=== PATIENT | female | born 1940 | race Caucasian/White ===

== ENCOUNTER 2017-09-29 13:04 | Inpatient (IN) | payer MEDICARE, OTHER ==
[~2017-09-29] VITALS: Ht 160 cm; Wt 79.9 kg
[~2017-09-29 13:04] MED LIST: ACIDOPHILUS1 CAP PO; ALLERGY4 MG PO; AMBIEN5 MG PO; ANUSOL-HC25 MG R; ARIXTRA2.5 MG/0.5 SC; ASPIRIN CHILDRE81 MG PO; ATIVAN1 MG PO; BENEFIBER1 CTB PO; CILOSTAZOL100 MG PO; CLARITIN10 MG PO; CULTURELLE10 Billion PO; DAYQUIL COLD/FL1 SG1 PO; DUONEB 3 MG/3 ML3 M1 INH; FUROSEMIDE80 MG PO; GAS-X80 MG PO; HYDROCODONE BIT1 T11 PO; IMODIUM A-D2 MG PO; LASIX40 MG PO; LEVAQUIN750 MG PO; LIPITOR20 MG PO; LIPITOR40 MG PO; LOPRESSOR25 MG PO; MAG-OX 400400 MG PO; MUCINEX PO; MUCINEX600 MG PO; MUSINEX; NASONEX0.05 MG/AC; NASONEX0.05 MG/AC NAS; OXYGEN; PERCOCET 325 MG1 TA2 PO; PRAVACHOL40 MG PO; PREDNISONE10 MG PO; PRILOSEC20 M1 PO; PRILOSEC20 MG PO; PROAIR HFA0.09 MG/AC IH; PROAIR HFA0.09 MG/AC INH; PROCHLORPERAZIN10 MG PO; Percocet 325 MG1 TAB PO; QUESTRAN LIGHT4 GM PO; SYMBICORT1 AE1 IH; SYMBICORT1 AE1 INH; THERAPEUTIC VIT1 CAP PO; TOPROL XL25 MG PO; TYLENOL SINUS C PO; VITAMIN D5000 I2 PO; Ventolin 02.5 MG/3 M INH; [UNRECOGNIZED DRUG - OTHER]; [UNRECOGNIZED DRUG - OTHER] PO
[2017-09-29 13:08] VITALS: BP 157/49
[2017-09-29 14:14] LABS: BILIRUBIN NEGATIVE (NEGATIVE); BLOOD NEGATIVE (NEGATIVE); CLARITY SL CLOUDY (CLEAR); COLOR YELLOW (YELLOW); GLUCOSE NEGATIVE (NEGATIVE); KETONE NEGATIVE (NEGATIVE); LEUKO ESTERASE 2+ (NEGATIVE); NITRITE NEGATIVE (NEGATIVE); PH 5.5 (5.0-9.0); UROBILINOGEN 0.2 E.U./dl (0.2-1.0)
[2017-09-29 14:23] LABS: BASO # 0.1 10*3/uL (0.0-0.1); BASO % 0.8 % (0.0-1.0); EOS # 0.1 10*3/uL (0.0-0.4); EOS % 2.1 % (1.0-4.0); HEMATOCRIT 37.4 % (37.0-47.0); LYMPH # 1.3 10*3/uL (1.3-4.4); LYMPH % 18.8 % (27.0-41.0); MEAN CELL VOLUME 95.2 fl (81.0-99.0); MEAN CORPUSCULAR HGB 30.5 pg (27.0-31.0); MEAN CORPUSCULAR HGB CONC 32.1 g/dl (33.0-37.0); MEAN PLATELET VOLUME 9.6 fl (9.6-12.3); MONO # 0.7 10*3/uL (0.1-1.0); MONO % 10.4 % (3.0-9.0); NEUT # 4.5 10*3/uL (2.3-7.9); NEUT % 67.6 % (47.0-73.0); PLATELET COUNT AUTOMATED 245 10*3/uL (130-400); RED BLOOD COUNT 3.93 10*6/uL (4.10-5.10); RED CELL DISTRI WIDTH 12.3 % (0-14.5); WHITE BLOOD COUNT 6.6 10*3/uL (4.8-10.8)
[2017-09-29 14:33] LABS: ACT PARTIAL THROMBO TIME 24.4 SECONDS (20.8-31.5)
[2017-09-29 14:35] LABS: BACTERIA 2+; EPITHELIAL CELLS 51-100
[2017-09-29 14:36] LABS: WBC 21-30 wbc/hpf (0-5)
[2017-09-29 14:39] LABS: ALBUMIN 3.2 gm/dl (3.1-4.5); ALKALINE PHOSPHATASE 45 U/L (45-117); BUN 10 mg/dl (7-24); CHLORIDE 109 mmol/L (98-107); CREATININE 0.75 mg/dL (0.55-1.02); LIPASE 49 U/L (73-393); SGOT/AST 16 IU/L (3-35); SGPT/ALT 17 U/L (12-78); SODIUM 142 mmol/L (136-145); TOTAL PROTEIN 6.4 gm/dL (6.4-8.2); TROPONIN I < 0.015 ng/ml (<0.045)
[2017-09-29 15:20] VITALS: BP 150/60
[2017-09-29 16:00] VITALS: BP 141/56
[2017-09-29 20:00] VITALS: BP 128/60
[2017-09-30] VITALS: BP 132/107
[2017-09-30 06:33] LABS: BASO % 0.8 % (0.0-1.0); EOS # 0.1 10*3/uL (0.0-0.4); EOS % 2.5 % (1.0-4.0); HEMATOCRIT 38.4 % (37.0-47.0); HEMOGLOBIN 12.3 g/dl (12.0-16.0); LYMPH # 1.4 10*3/uL (1.3-4.4); LYMPH % 26.9 % (27.0-41.0); MEAN CORPUSCULAR HGB 30.4 pg (27.0-31.0); MEAN PLATELET VOLUME 9.7 fl (9.6-12.3); MONO # 0.5 10*3/uL (0.1-1.0); MONO % 10.2 % (3.0-9.0); NEUT # 3.1 10*3/uL (2.3-7.9); NEUT % 59.2 % (47.0-73.0); PLATELET COUNT AUTOMATED 245 10*3/uL (130-400); RED BLOOD COUNT 4.04 10*6/uL (4.10-5.10); RED CELL DISTRI WIDTH 12.4 % (0-14.5); WHITE BLOOD COUNT 5.2 10*3/uL (4.8-10.8)
[2017-09-30 06:41] LABS: ACT PARTIAL THROMBO TIME 25.1 SECONDS (20.8-31.5); INTERNATIONAL NORM RATIO 1.1 (2.0-3.5)
[2017-09-30 06:57] LABS: ALBUMIN 3.2 gm/dl (3.1-4.5); ALKALINE PHOSPHATASE 44 U/L (45-117); BUN 7 mg/dl (7-24); CHLORIDE 108 mmol/L (98-107); CHOLESTEROL 150 mg/dL (<200); CREATININE 0.65 mg/dL (0.55-1.02); FREE T4 1.03 ng/dl (0.76-1.46); HDL CHOLESTEROL 62 mg/dl (40-60); LDL CHOLESTEROL 71 mg/dL (9-159); PHOSPHOROUS 2.9 mg/dL (2.5-4.9); POTASSIUM 3.8 mmol/L (3.5-5.1); SGOT/AST 16 IU/L (3-35); SGPT/ALT 18 U/L (12-78); SODIUM 143 mmol/L (136-145); TOTAL PROTEIN 6.4 gm/dL (6.4-8.2); TRIGLYCERIDES 84 mg/dl (<150); VLDL CHOLESTEROL 17 mg/dL (6-40)
[2017-09-30 07:33] LABS: VITAMIN D, 25-HYDROXY 15.1 ng/mL (30-100)
[2017-09-30 08:00] VITALS: BP 140/55
[2017-09-30 12:00] VITALS: BP 153/68
[2017-09-30] MEDS ORDERED: VITAMIN D-32000 UNIT PO (13:39)
[2017-09-30] MEDS ORDERED: NORVASC5 MG PO (13:40)
== END 2017-09-30 14:40 | disposition home or self-care (01) | DRG 312 ==
LOC: ED 13:04 → 4E 16:00 → EDHOLD 16:00 → 4E 16:22
PROVIDERS: Emergency Medicine; Family Medicine
DX: R55 Syncope and collapse (principal); E87.2 Acidosis; E44.0 Moderate protein-calorie malnutrition; E86.0 Dehydration; N39.0 Urinary tract infection, site not specified; J44.9 Chronic obstructive pulmonary disease, unspecified; I10 Essential (primary) hypertension; E78.5 Hyperlipidemia, unspecified; Z80.49 Family history of malignant neoplasm of other genital organs; Z88.8 Allergy status to other drugs, medicaments and biological substances; Z88.1 Allergy status to other antibiotic agents; Z91.013 Allergy to seafood; Z79.899 Other long term (current) drug therapy; Z85.048 Personal history of other malignant neoplasm of rectum, rectosigmoid junction, and anus; Z90.49 Acquired absence of other specified parts of digestive tract; Z93.3 Colostomy status; Z87.891 Personal history of nicotine dependence; Z80.8 Family history of malignant neoplasm of other organs or systems; Z68.31 Body mass index [BMI] 31.0-31.9, adult

== ENCOUNTER 2018-01-02 12:32 | Emergency (ER) | payer MEDICARE, OTHER ==
[~2018-01-02] VITALS: Ht 157.4 cm; Wt 79.4 kg
[~2018-01-02 12:32] MED LIST changes: +NORVASC5 MG PO; +VITAMIN D-32000 UNIT PO
== END 2018-01-02 15:40 | disposition home or self-care (01) ==
LOC: ED 12:32
DX: S82.831A Other fracture of upper and lower end of right fibula, initial encounter for closed fracture (principal); Z88.1 Allergy status to other antibiotic agents; Z91.013 Allergy to seafood; Z88.8 Allergy status to other drugs, medicaments and biological substances; Z79.899 Other long term (current) drug therapy; Z90.49 Acquired absence of other specified parts of digestive tract; Z87.891 Personal history of nicotine dependence; X50.1XXA Overexertion from prolonged static or awkward postures, initial encounter; Y93.89 Activity, other specified; Y92.89 Other specified places as the place of occurrence of the external cause; Y99.8 Other external cause status

== ENCOUNTER → 2018-02-02 | Outpatient (CLI) | payer MEDICARE, OTHER | END | disposition home or self-care (01) | LOC: WOUNDCARE 07:43 | DX: I87.312 Chronic venous hypertension (idiopathic) with ulcer of left lower extremity (principal); L97.821 Non-pressure chronic ulcer of other part of left lower leg limited to breakdown of skin; I73.9 Peripheral vascular disease, unspecified; J44.9 Chronic obstructive pulmonary disease, unspecified; E78.5 Hyperlipidemia, unspecified; I10 Essential (primary) hypertension; Z85.048 Personal history of other malignant neoplasm of rectum, rectosigmoid junction, and anus; Z90.49 Acquired absence of other specified parts of digestive tract; Z87.891 Personal history of nicotine dependence ==

== ENCOUNTER 2018-03-31 12:40 | Emergency (ER) | payer MEDICARE, OTHER ==
[~2018-03-31] VITALS: Ht 157.4 cm; Wt 68.0 kg
== END 2018-03-31 16:17 | disposition home or self-care (01) ==
LOC: ED 12:40
DX: S82.435A Nondisplaced oblique fracture of shaft of left fibula, initial encounter for closed fracture (principal); I11.0 Hypertensive heart disease with heart failure; I50.9 Heart failure, unspecified; J44.9 Chronic obstructive pulmonary disease, unspecified; Z88.1 Allergy status to other antibiotic agents; Z91.013 Allergy to seafood; Z91.041 Radiographic dye allergy status; Z88.8 Allergy status to other drugs, medicaments and biological substances; Z79.899 Other long term (current) drug therapy; Z90.49 Acquired absence of other specified parts of digestive tract; Z93.3 Colostomy status; Z87.891 Personal history of nicotine dependence; W19.XXXA Unspecified fall, initial encounter; Y93.89 Activity, other specified; Y92.89 Other specified places as the place of occurrence of the external cause; Y99.8 Other external cause status

== ENCOUNTER → 2018-04-06 | Outpatient (CLI) | payer MEDICARE, OTHER | END | disposition home or self-care (01) | LOC: US 11:22 | DX: M79.604 Pain in right leg (principal); M79.605 Pain in left leg; R60.0 Localized edema ==

== ENCOUNTER 2018-05-14 19:30 | Inpatient (IN) | payer MEDICARE, OTHER ==
[~2018-05-14] VITALS: Ht 160 cm; Wt 70.8 kg
[2018-05-14 19:35] VITALS: BP 142/80
--- NOTE | 2018-05-14 20:33 | NUR ---
PATIENT REFUSING IV INSERTION. DR PAPPAS AWARE.
--- NOTE | 2018-05-14 20:49 | NUR ---
PATIENT DROWSY IN EXAM ROOM. REPORTS HER PAIN IS "OKAY". STATES "THAT SHOT DID IT". DR PAPPAS AWARE.
[2018-05-14 21:09] VITALS: BP 137/61
--- NOTE | 2018-05-14 21:09 | NUR ---
Time: 2108 A 77 year old FEMALE admitted to under services of CHRISTINA DE LA CRUZ DO. Pt. arrived via bed from ER. Chief complaint: CLOSED HUMERUS FRACTURE, INTRACTABLE PAIN. PT BELONGINGS ACCOUNTED FOR. HEALTHY LIFESTYLES GUIDELINE REVIEWED. DR. SQUIRES IS AWARE THAT PT IS REFUSING IV ACCESS. PT IS PLEASANT AND COOPERATIVE AND ANSWERED ALL QUESTIONS APPROPRIATELY. ASSESSMENT COMPLETED. WILLIAM DAWSON
--- NOTE | 2018-05-14 21:09 | NUR ---
DR. SQUIRES IS AWARE PT IS REFUSING IV ACCESS AT THIS TIME.
--- NOTE | 2018-05-14 21:50 | NUR ---
PT STATES THAT THE CURRENT MEDICATIONS ON THE MED REC FROM HER LAST VISIT HAVE CHANGED AND THAT SHE TAKES MORE THAN WHAT IS LISTED AT THIS TIME. PT STATES SHE WILL MAKE A CALL TO HER BROTHER IN THE MORNING WHO HAS A LIST OF HER MEDICATIONS, SHE STATES SHE DOES NOT WANT TO CALL AT THIS TIME AND WAKE HIM UP. DR. SQUIRES NOTIFIED. WILL PASS ON TO ONCOMING RN IF SHE DOES NOT SPEAK WITH HER BROTHER DURING THE CURRENT SHIFT.
[2018-05-15] VITALS: BP 138/56
--- NOTE | 2018-05-15 00:17 | NUR ---
PRN ORDER FOR TYLENOL REQUESTED AND RECIEVED FOR PAIN TO FRACTURED LEFT SHOULDER. SHE RATES THE PAIN AN 8/10 HOWEVER SHE REFUSES ANYTHING STRONGER THAN TYLENOL, SHE STATES SHE "REFUSES TO TAKE DRUGS FOR PAIN CONTROL". WILL CONTINUE TO MONITOR FOR EFFECTIVENESS.
--- NOTE | 2018-05-15 03:15 | NUR ---
SPOKE TO DR. SQUIRES REGUARDING AN ORDER FOR A SLING TO HELP IMMOBILIZE THE PT'S ARM. SHE STATES IT HURTS MORE BECAUSE SHE CANNOT KEEP IT STILL. WILL CONTINUE TO MONITOR
--- NOTE | 2018-05-15 04:29 | NUR ---
PT IS RESTING IN BED AT THIS TIME WITH NO SIGNS OF DISTRESS. SPLINT TO LEFT ARM IS INTACT. RESPIRATIONS ARE EASY AND UNLABORED. PT IS STILL REFUSING AN IV SITE. BED IS IN LOWEST POSITION AND CALL LIGHT IS WITHIN REACH. BED ALARM IS ON AND YELLOW FALLING STAR SIGN IS POSTED. WILL CONTINUE TO MONITOR PT.
[2018-05-15 08:00] VITALS: BP 120/92
--- NOTE | 2018-05-15 08:33 | NUR ---
ASSESSMENT DONE AND DOCUMENTED. PT RESTING IN BED. PT REMAINS NPO. YULISA THOMAS SPCC
--- NOTE | 2018-05-15 09:00 | NUR ---
Air Pollution Analyst in to talk to patient. Patient states lives at home with alone. There are no steps in the home. Physician: mary tobar [facility] [place] [facility]: [facility] Patient's level of ADLs: MODERATE ASSIST Patient has working utilities: all working DME: home oxygen, portable tanks Follow-up physician's appointment after d/c: will be made by hospitalist nurse director upon dischage Does patient want to access PORTAL?: no Discharge plan discussed with patient, patient lives at home alone, patient has not been getting around very well, she has a cast to lower extremity and now has a fractured humerus, discussed with patient going to a short term [facility] for rehab prior to going home, patient declined, stated she would be able to care for herself at home, again educated patient that she would receive 24 hour care and therapy 5 days a week in a short term skilled in order for her to be able to return home safely. patient continued to decline SNF, case management will talk with patient again regarding this. JOSE D JOHNSTON
--- NOTE | 2018-05-15 09:15 | NUR ---
TALKED TO THE PODIATRY RESIDENT, SAID HE WOULD BE IN TO SEE THE PT THIS AFTERNOON.
[2018-05-15 09:22] LABS: BASO % 0.7 % (0.0-1.0); EOS # 0.2 10*3/uL (0.0-0.4); HEMATOCRIT 39.4 % (37.0-47.0); HEMOGLOBIN 12.2 g/dl (12.0-16.0); LYMPH # 1.2 10*3/uL (1.3-4.4); LYMPH % 21.5 % (27.0-41.0); MEAN CELL VOLUME 91.6 fl (81.0-99.0); MEAN CORPUSCULAR HGB 28.4 pg (27.0-31.0); MEAN PLATELET VOLUME 9.5 fl (9.6-12.3); MONO # 0.5 10*3/uL (0.1-1.0); MONO % 9.2 % (3.0-9.0); NEUT # 3.6 10*3/uL (2.3-7.9); NEUT % 64.4 % (47.0-73.0); PLATELET COUNT AUTOMATED 272 10*3/uL (130-400); RED CELL DISTRI WIDTH 13.2 % (0-14.5); WHITE BLOOD COUNT 5.5 10*3/uL (4.8-10.8)
[2018-05-15 09:38] LABS: ALBUMIN 2.8 gm/dl (3.1-4.5); ALKALINE PHOSPHATASE 55 U/L (45-117); BUN 10 mg/dl (7-24); CHLORIDE 106 mmol/L (98-107); CHOLESTEROL 150 mg/dL (<200); HDL CHOLESTEROL 63 mg/dl (40-60); LDL CHOLESTEROL 71 mg/dL (9-159); PHOSPHOROUS 3.1 mg/dL (2.5-4.9); POTASSIUM 4.2 mmol/L (3.5-5.1); SGOT/AST 14 IU/L (3-35); SGPT/ALT 13 U/L (12-78); SODIUM 138 mmol/L (136-145); TOTAL PROTEIN 6.3 gm/dL (6.4-8.2); TRIGLYCERIDES 78 mg/dl (<150); VLDL CHOLESTEROL 16 mg/dL (6-40)
[2018-05-15 09:39] LABS: FREE T4 0.99 ng/dl (0.76-1.46)
[2018-05-15 09:44] LABS: THYROID STIM HORMONE (HS) 0.962 uIU/ml (0.358-4.75)
--- NOTE | 2018-05-15 11:18 | NUR ---
Occupational Therapy evaluation completed on 4 with full eval to follow. Precautions include NWB LLE with cast in place, NWB LUE with sling and LUE immobilized from wrist to shd until orthopedic consult, non compliance with LLE NWB. Staff and patient educated in LLE and LUE precautions, pain in LUE. Patient is high complexity level [id number] via chart review, testing and evaluation. REcommend SNF to enable safe return home alone. Patient is refusing SNF at this time. Thank you for this referral. Sugey Mendoza OTR/L
[2018-05-15 11:36] LABS: VITAMIN D, 25-HYDROXY 19.9 ng/mL (30-100)
--- NOTE | 2018-05-15 11:46 | NUR ---
IN TO SEE PT.
[2018-05-15 12:08] VITALS: BP 128/54
--- NOTE | 2018-05-15 13:32 | NUR ---
PHYSICAL THERAPY PAtient evaluated in 4, full evaluation to follow. Continue with PT as per plan of care with fall, max(A) x 2 and NWB LUE AND LLE precautions. MAy require LTAC prior to SNF, pemding medical needs. PAient is high complexity via chart review, tests and evaluation: [id number]. Please note patient kept repeating she was WBAT LLE. This PT noted her cast appeared to be a NWB cast- not a walking cast so this PT called her clinic and spoke with Kamari at [phone] and per that clinic, as of 05/11/18 she is definately NWB LLE. PAtient and all staff members involved with this patient care at [facility] facility extensively educated patient is NWB LLE. PAtient unable to stand erct NWB LLE with max(A) x 2 this date, especially NWB LUE as well. Thank you for this referral. Berenice Arteaga,PT
--- NOTE | 2018-05-15 13:46 | NUR ---
REPORT GIVEN TO HELEN RODGERS. PT RESTING IN BED. VISITING WITH BROTHER. YULISA THOMAS SPNRCC
--- NOTE | 2018-05-15 15:45 | NUR ---
PT AGREEING TO "TRY" NORCO AT THIS TIME FOR ARM/SHOULDER PAIN RATED 10/10. CALL LIGHT IN REACH. RISKS AND BENEFITS EXPLAINED.
[2018-05-15 16:00] VITALS: BP 121/51
--- NOTE | 2018-05-15 16:04 | NUR ---
OT NOTE PATIENT SEEN 1:1 OT THIS DATE. PATIENT IDENTIFIED BY NAME AND DATE OF THIS DATE. PATIENT IN BED UPON ARRIVAL COMPLETED ACTIVITY TO TOLERANCE THIS DATE. COMPLETED 26 MINUTES OF OT. COMPLETED SUPINE TO SIT EOB USE OF RAIL RUE MOD A AND INCREASE TIME. PATIENT REPORTS PAIN LEFT UE VERBALIZING THAT IT JUST HURTS. PATIENT WITH L SLING WEAR THROUGHOUT SESSION THIS DATE. PATIENT EDUCATED ON LLE NWB STATUS WITH THE PATIENT VERBALIZING POOR UNDERSTANDING. PATIENT COMPLETED SIT BALANCE EOB 20 MINUTES COMPLETING GROOMING TASK USE RUE COMBING HAIR. PATIENT COMPLETED SIT TO SUPINE MOD A TO LIFT BLE INTO BED. PATIENT IN BED END OF SESSION VERBALIZING COMFORT AND NO FURTHER NEEDS. PATIENT'S BED ALARM INTACT END OF SESSION AND CALL LIGHT WITHIN REACH. KEITH BENJAMIN
[2018-05-15 20:00] VITALS: BP 134/80
--- NOTE | 2018-05-15 20:12 | NUR ---
PATIENT IS AAOX3 RESTING IN BED WITH EASY AND REGULAR RESPERS ON ROOM AIR. ASSESSMENT IS COMPLETE, PATIENT DOES DISPLAY SIGNS OF DISCOMFORT AND C/O PAIN TO LEFT SHOULDER RATING A 7/10. PATIENT WOULD LIKE PAIN MEDICATION WITH 2200 MEDS. BED IS LOW, LOCKED, ALARMED, AND CALL LIGHT IS WITHIN REACH. SEE SHIFT ASSESSMENT.
--- NOTE | 2018-05-15 22:04 | NUR ---
PRN NORCO GIVEN AT THIS TIME FOR LEFT SHOULDER PAIN AND TO AID IN SLEEPING. PATIENT TOLERATED WELL, CALL LIGHT IS WITHIN REACH.
[2018-05-16] VITALS: BP 137/73
--- NOTE | 2018-05-16 07:08 | NUR ---
PATIENT RESTING IN BED WITH EYES CLOSED. RESPIRATIONS ARE EASY AND REGULAR. NO DISTRESS IS NOTED. BED IS IN LOWEST POSITION WITH WHEELS LOCKED. BED ALARM INTACT. CALL LIGHT IS WITHIN REACH. WILL CONTINUE TO MONITOR.
[2018-05-16 08:00] VITALS: BP 130/70
--- NOTE | 2018-05-16 08:12 | NUR ---
SPOKE WITH DR SANTANA REGARDING PATIENTS DIET. PER DR SANTANA NO REASON FOR PATIENT TO BE NPO FROM HER STANDPOINT. JAK PERRY NOTIFIED.
--- NOTE | 2018-05-16 08:20 | NUR ---
OT NOTE Pt was seen this A.M. 1:1 for 24 minute OT session. Upon arrival pt was sitting upright on the EOB with non skid sock on her L foot and personal sock on the R and sling on her LUE. Pt identified by name and and had reports of 5/10 pain in her L shoulder. Educated pt on importance and safety with wearing non skid socks, pt donned R sock with modA due to no use with her LUE. Challenged pt's sitting balance needed for increased I and enhanced safety while having her weight shift, cross midline, and complete bilateral integration tasks. Pt was able to maintain G- sitting balance throughout for aprox 10 minutes. Educated pt on non weight bearing status, pt verbalized understanding. Pt completed sit to stand transfers from bed level with modA and poor carry over of weight bearing status, pt would correct with verbal prompts. Pt was able to tolerate aprox 30 seconds at a time of static standing before sitting due to fatigue. Pt completed stand pivot to bedside commode with modA and constant verbal prompts due to pt not following weight bearing status. Pt then returned to EOB where she trasnferred sit to supine with CGA. Pt was left supine in bed with L shoulder on rolled blankets, call light in hand, tray table in place, and bed alarm activated for safety. Continue with rec D/C plan to SNF. MARY Todd/Vahid .
--- NOTE | 2018-05-16 08:51 | NUR ---
PRN NORCO GIVEN FOR COMPLAINTS OF LEFT ARM PAIN RATED 9/10. WILL EVALUATE EFFECTIVENESS. CALL LIGHT IS WITHIN REACH.
--- NOTE | 2018-05-16 08:58 | NUR ---
Patient agreeable to half-way; when provided with a list of facilities, patient chose [facility]. Contacted facility and faxed referral, requires 3 night stay. Waiting on review/acceptance.
--- NOTE | 2018-05-16 10:16 | NUR ---
PRN NORCO APPEARS TO BE EFFECTIVE. PATIENT RESTING IN BED WITH EYES CLOSED. RESPIRATIONS ARE EASY AND REGULAR. NO DISTRESS NOTED. CALL LIGHT IS WITHIN REACH. WILL CONTINUE TO MONITOR.
--- NOTE | 2018-05-16 10:43 | NUR ---
PHYSICAL THERAPY Patient presented to therapy in supine position with report of 5/10 pain in the L Shoulder. Patient has report of NOT maintaining her NWB STATUS at all since she injured her L LE/ANKLE. Patient agrees to therapy session. Patient was identified by name and . Patient IS NWB ON BOTH L LE AND UE. Patient performed supine to sitting transfer at EOB with MOD A X 1 due to not being able to use the L UE. Patient performed bilateral LE THER EX in all planes of movement x 10 reps each for strengthening in order to improve patient's functional mobility. Patient sat at EOB for 5 minutes SBA. Patient transferred STS with MOD X 2. Patient stood for 37 sec. at EOB with CGA X 2 maintaing NWB on L LE. Patient transferred back to sitting at EOB with MIN A X 2. Patient transferred back to supine in bed with CGA X 1. Patient was left in supine position with call light within reach, bed alarm activated, and head of bed elevated. MARY TEJADA witnessed the bed alarm being turned on / activated. Patient was 1:1 with this BANQUET LEAD for 20 minutes total. KATEY ALVARADO BANQUET LEAD
--- NOTE | 2018-05-16 11:40 | NUR ---
Patient has been accepted to [facility], hospital exemption completed, patient requires 3 night stay, she can go on Tuesday05/17/18 if medically stable for discharge.
[2018-05-16 12:00] VITALS: BP 132/98
[2018-05-16 16:00] VITALS: BP 124/55
--- NOTE | 2018-05-16 19:45 | NUR ---
PATIENT IS AAOX3 WITH EASY AND REGULAR RESPERS ON ROOM AIR. ASSESSMENT IS COMPLETE WITH NO S/S OF DISTRESS NOTED AT THIS TIME. PATIENT DOES C/O LEFT SHOULDER/ARM PAIN RATING A 9/10, PATIENT REFUSED TYLENOL AT THIS TIME AND WOULD LIKE NORCO WHEN DUE. BED IS LOW, LOCKED, AND CALL LIGHT IS WITHIN REACH. SEE SHIFT ASSESSMENT.
[2018-05-16 20:00] VITALS: BP 111/57
--- NOTE | 2018-05-16 21:54 | NUR ---
PRN NORCO AND IMMODIUM GIVEN AT THIS TIME FOR PATIENT C/O PAIN AND LOOSE STOOL. CALL LIGHT IS WITHIN REACH WILL MONITOR EFFECT.
--- NOTE | 2018-05-16 22:30 | NUR ---
PRN MEDICATION EFFECTIVE PER PATIENT. CALL LIGHT IS WITHIN REACH.
[2018-05-17] VITALS: BP 109/62
--- NOTE | 2018-05-17 02:00 | NUR ---
PATIENT IS SLEEPING WITH EASY AND REGULAR RESPERS ON ROOM AIR, CALL LIGHT IS WITHIN REACH.
[2018-05-17 08:00] VITALS: BP 127/89
[2018-05-17] MEDS ORDERED: HYDROCODONE-AC1 EAC1 PO (08:47)
--- NOTE | 2018-05-17 10:45 | NUR ---
OT NOTE Pt was seen this A.M. 1:1 for 15 minute OT session. Upon arrival pt was supine in bed, pt identified by bame and . Pt had reports of pain in her L shoulder however was unable to rate on 0-10 pain scale. Pt transferred supine to sit EOB with modA for assist with UB. Re educated pt on non weight bearing status and pt became very aggitated. Pt completed multiple sit to stand transfers from bed level with modA with constant verbal prompts for LLE weight bearing and pt was non compliant placing WBAT on LLE. Challenged pt's static standing tolerance while being non weight bearing due to therapists constant verbal prompts needed for increased I in self care tasks and functinal transfers. Pt was able to tolerate aprox 30-45 seconds at a time with modA for UE support. Stand pivot completed to bedside commode with education on pivot technique while being non weight bearing, pt completed stand pivot with modA and again being non complaint and placing WBAT on LLE. Pt transferred back into bed sit to supine with Paras. Pt was left supine in bed with call light in hand, tray table in place, and bed alarm activated for safety. Continue with rec D/c plan to SNF. MARY Todd/Vahid
--- NOTE | 2018-05-17 11:12 | NUR ---
PHYSICAL THERAPY Patient presented to therapy in supine position with report of continued L Shoulder pain and complaints of the "knobs" on the bottom of her cast that she says, she is going to get sandpaper and rub them off. Patient very aggitated about being NON-WB on the L LE. Patient says she has always put wt. on the L LE and has had no trouble with it. Content Architect was in to see patient and patient was argumentative with the Doctor about her wieght-bearing status. Patient agrees to therapy session. Patient was identified by name and . Patient performed supine to sitting at EOB transfer with MOD A X 1. Patient transferred STS with MOD A X 2. Patient SPT transfer to bedside chair with MOD A X 2. Patient is NOT compliant with weight-bearing staus of NWB on L LE. Patient transferred off of bedside chair and stood for 1 minute total on R LE with MIN A X 2. Patient at times, placed weight on the L LE despite being verbal cued MULTIPLE times to NOT put weight on the L LE. Patient transferred to sitting at EOB with MOD A X 2. Patient sat on EOB and performed bilateral LE ther ex in all planes of movement 2 x 10 reps each for strengthening in order to improve patient's functional mobility. Patient transferred back to supine in bed with MOD A X 1. Patient was left in supine position with call light within reach, bed alarm activated, and head of bed elevated. THIS PIE CRIMPING MACHINE OPERATOR ACTIVATED BED ALARM WITH MARY TEJADA PRESENT WITNESS. Patient was 1:1 with this PIE CRIMPING MACHINE OPERATOR for 23 minutes total. KATEY ALVARADO PIE CRIMPING MACHINE OPERATOR
[2018-05-17 12:00] VITALS: BP 116/57
--- NOTE | 2018-05-17 13:32 | NUR ---
Patient is discharged to [facility], transportation scheduled for 3:30 with [facility] [place], nursing and brother caitlyn notified, he stated he will call the other brother.
--- NOTE | 2018-05-17 15:02 | NUR ---
Discharge instructions reviewed with patient/family AND SNF . Patient receptive and verbalizes understanding. Follow-up care arranged. Written instructions given to patient/family. TAHMINA DAMON
--- NOTE | 2018-05-17 15:16 | NUR ---
PHYSICAL THERAPY CO-SIGN I approve of the Phyical Therapy notes written above. EVAN GARNER PT
--- NOTE | 2018-05-17 15:44 | NUR ---
OCCUPATIONAL THERAPY CO-SIGN I approve of the Occupational Therapy notes written above. TARA REYES OTR/Vahid
== END 2018-05-17 15:02 | disposition other institution (70) | DRG 563 ==
LOC: ED 19:30 → 4E 20:25 → EDHOLD 20:25 → 4E 20:34
PROVIDERS: Registered Nurse; ADMIT Internal Medicine
DX: S42.302A Unspecified fracture of shaft of humerus, left arm, initial encounter for closed fracture (principal); E44.0 Moderate protein-calorie malnutrition; N39.0 Urinary tract infection, site not specified; E83.51 Hypocalcemia; E53.8 Deficiency of other specified B group vitamins; R73.03 Prediabetes; J44.9 Chronic obstructive pulmonary disease, unspecified; E78.5 Hyperlipidemia, unspecified; I10 Essential (primary) hypertension; E78.00 Pure hypercholesterolemia, unspecified; J45.20 Mild intermittent asthma, uncomplicated; W18.30XA Fall on same level, unspecified, initial encounter; Y93.89 Activity, other specified; Y92.098 Other place in other non-institutional residence as the place of occurrence of the external cause; Y99.8 Other external cause status; Z88.1 Allergy status to other antibiotic agents; Z91.013 Allergy to seafood; Z88.8 Allergy status to other drugs, medicaments and biological substances; Z91.048 Other nonmedicinal substance allergy status; Z87.440 Personal history of urinary (tract) infections; Z85.048 Personal history of other malignant neoplasm of rectum, rectosigmoid junction, and anus; Z90.49 Acquired absence of other specified parts of digestive tract; Z87.891 Personal history of nicotine dependence; Z82.49 Family history of ischemic heart disease and other diseases of the circulatory system; Z80.9 Family history of malignant neoplasm, unspecified; Z79.899 Other long term (current) drug therapy; S82.435 Nondisplaced oblique fracture of shaft of left fibula; Z91.19 Patient's noncompliance with other medical treatment and regimen; Z68.27 Body mass index [BMI] 27.0-27.9, adult

== ENCOUNTER → 2018-05-25 | Outpatient (CLI) | payer MEDICARE, OTHER ==
[~2018-05-25] MED LIST changes: +HYDROCODONE-AC1 EAC1 PO
== END | disposition home or self-care (01) ==
LOC: ORTHO 01:33
DX: S42.302D Unspecified fracture of shaft of humerus, left arm, subsequent encounter for fracture with routine healing (principal); X58.XXXA Exposure to other specified factors, initial encounter; Y93.89 Activity, other specified; Y92.89 Other specified places as the place of occurrence of the external cause; Y99.8 Other external cause status

== ENCOUNTER → 2018-06-12 | Outpatient (CLI) | payer MEDICARE, OTHER | END | disposition home or self-care (01) | LOC: ORTHO 01:19 | DX: S42.355D Nondisplaced comminuted fracture of shaft of humerus, left arm, subsequent encounter for fracture with routine healing (principal); X58.XXXD Exposure to other specified factors, subsequent encounter ==

== ENCOUNTER → 2018-07-14 | Outpatient (CLI) | payer MEDICARE, OTHER | END | disposition home or self-care (01) | LOC: ORTHO 02:56 | DX: S42.355D Nondisplaced comminuted fracture of shaft of humerus, left arm, subsequent encounter for fracture with routine healing (principal); W19.XXXD Unspecified fall, subsequent encounter ==

== ENCOUNTER 2019-06-18 21:56 | Inpatient (IN) | payer MEDICARE, OTHER ==
[~2019-06-18] VITALS: Ht 157.4 cm; Wt 69.0 kg
[2019-06-18 21:58] VITALS: BP 128/42
[2019-06-18 23:01] LABS: BASO # 0.1 10*3/uL (0.0-0.1); BASO % 0.4 % (0.0-1.0); EOS % 0.3 % (1.0-4.0); HEMATOCRIT 37.2 % (37.0-47.0); HEMOGLOBIN 11.9 g/dl (12.0-16.0); LYMPH % 8.3 % (27.0-41.0); MEAN CELL VOLUME 97.1 fl (81.0-99.0); MEAN CORPUSCULAR HGB 31.1 pg (27.0-31.0); MEAN PLATELET VOLUME 9.6 fl (9.6-12.3); MONO % 8.3 % (3.0-9.0); NEUT # 10.2 10*3/uL (2.3-7.9); NEUT % 82.2 % (47.0-73.0); PLATELET COUNT AUTOMATED 249 10*3/uL (130-400); RED BLOOD COUNT 3.83 10*6/uL (4.10-5.10); RED CELL DISTRI WIDTH 13.3 % (0-14.5); WHITE BLOOD COUNT 12.4 10*3/uL (4.8-10.8)
[2019-06-18 23:10] LABS: INTERNATIONAL NORM RATIO 1.1 (2.0-3.5)
[2019-06-18 23:17] LABS: ALBUMIN 3.2 gm/dl (3.1-4.5); ALKALINE PHOSPHATASE 44 U/L (45-117); BUN 9 mg/dl (7-24); CHLORIDE 109 mmol/L (98-107); CREATININE 0.75 mg/dL (0.55-1.02); POTASSIUM 3.7 mmol/L (3.5-5.1); SGOT/AST 9 IU/L (3-35); SGPT/ALT 16 U/L (12-78); SODIUM 140 mmol/L (136-145); TOTAL PROTEIN 6.3 gm/dL (6.4-8.2)
[2019-06-18 23:18] LABS: TROPONIN I < 0.015 ng/ml (<0.045)
[2019-06-19 01:39] LABS: BILIRUBIN NEGATIVE (NEGATIVE); CLARITY CLEAR (CLEAR); COLOR YELLOW (YELLOW); GLUCOSE NEGATIVE (NEGATIVE); KETONE NEGATIVE (NEGATIVE); SPECIFIC GRAVITY 1.025 (1.005-1.030)
[2019-06-19 01:40] LABS: BLOOD NEGATIVE (NEGATIVE); LEUKO ESTERASE NEGATIVE (NEGATIVE); NITRITE NEGATIVE (NEGATIVE); UROBILINOGEN 0.2 E.U./dl (0.2-1.0)
[2019-06-19 01:43] LABS: EPITHELIAL CELLS 20-25; WBC 0-2 wbc/hpf (0-5)
--- NOTE | 2019-06-19 03:20 | NUR ---
A 78, admitted to , under the services of LEIGH Cramer DO with a diagnosis of SYMPTOMATIC BRADYCARDIA. Chief complaint is NAUSEA, VOMITING, DIARRHEA, WEAKNESS. Patient arrived via ambulance from ER. Monitor applied. Initial assessment completed. Vital signs taken and recorded. LEIGH CRAMER DO notified of admission to the unit. Orders received. See assessment for past medical history, medications and allergies. Patient and/or family oriented to unit. [facility] Clothing/patient valuable form completed. ALEKSEY LUGO
--- NOTE | 2019-06-19 04:55 | NUR ---
CONSULT CALL MADE TO DR HERNANDEZ
[2019-06-19 06:35] LABS: BASO % 0.4 % (0.0-1.0); EOS # 0.1 10*3/uL (0.0-0.4); EOS % 0.9 % (1.0-4.0); HEMATOCRIT 37.7 % (37.0-47.0); HEMOGLOBIN 12.1 g/dl (12.0-16.0); LYMPH # 1.4 10*3/uL (1.3-4.4); LYMPH % 12.8 % (27.0-41.0); MEAN CELL VOLUME 96.7 fl (81.0-99.0); MEAN CORPUSCULAR HGB CONC 32.1 g/dl (33.0-37.0); MEAN PLATELET VOLUME 9.5 fl (9.6-12.3); MONO # 0.8 10*3/uL (0.1-1.0); MONO % 7.5 % (3.0-9.0); NEUT # 8.4 10*3/uL (2.3-7.9); NEUT % 77.8 % (47.0-73.0); PLATELET COUNT AUTOMATED 254 10*3/uL (130-400); RED CELL DISTRI WIDTH 13.3 % (0-14.5); WHITE BLOOD COUNT 10.8 10*3/uL (4.8-10.8)
--- NOTE | 2019-06-19 06:45 | NUR ---
DR. MARIE NOTIFIED OF PT'S CONTINUED DIARRHEA. OK TO TEST STOOL FOR CDIFF. STOOL SENT.
[2019-06-19 07:04] LABS: BUN 9 mg/dl (7-24); CHLORIDE 108 mmol/L (98-107); CHOLESTEROL 122 mg/dL (<200); CREATININE 0.77 mg/dL (0.55-1.02); HDL CHOLESTEROL 77 mg/dl (40-60); LDL CHOLESTEROL 34 mg/dL (9-159); PHOSPHOROUS 2.2 mg/dL (2.5-4.9); POTASSIUM 3.4 mmol/L (3.5-5.1); SODIUM 140 mmol/L (136-145); TRIGLYCERIDES 53 mg/dl (<150); VLDL CHOLESTEROL 11 mg/dL (6-40)
[2019-06-19 07:10] LABS: THYROID STIM HORMONE (HS) 0.853 uIU/ml (0.358-4.75)
[2019-06-19 08:00] VITALS: BP 152/48
--- NOTE | 2019-06-19 09:00 | NUR ---
NOTIFIED OF MID STERNAL CHEST PAIN, NEW ORDERS RECIEVED
[2019-06-19 09:54] LABS: VITAMIN D, 25-HYDROXY 17.7 ng/mL (30-100)
--- NOTE | 2019-06-19 10:43 | NUR ---
PHYSICAL THERAPY Screen and PT eval received will follow thank you Jeanie Gee PT
--- NOTE | 2019-06-19 11:49 | NUR ---
PER PT IS TO BE TRANSFERRED TO [facility] FOR POSSIBLE PACE MAKER INSERTION. [facility] IS AWARE DEMO SHEET FAXE AWAIITNG BED ASSIGMENT
[2019-06-19 12:00] VITALS: BP 140/50
--- NOTE | 2019-06-19 12:17 | NUR ---
Hull Grinder in to talk to patient. Patient states lives at home with alone. There are no steps in the home. Physician: mary tobar [facility]acy: [facility] Home health services: none Patient's level of ADLs: INDEPENDENT Patient has working utilities: all working DME: none Follow-up physician's appointment after d/c: will be made by hospitalist nurse director upon discharge Does patient want to access PORTAL?: no Discharge plan discussed with patient, daughter present, patient states she lives at home alone, she is independent in adls and ambulation, drives, she states she will return home when medically stable, discussed with them [facility] and educated on the services they provide, patient declines, states she is being transferred to [facility] tomorrow for a pacemaker, case management will follow. JOSE D JOHNSTON
[2019-06-19] MEDS ORDERED: MUCINEX ER600 MG PO (14:15)
[2019-06-19] MEDS ORDERED: LEVAQUIN750 M1 PO (14:15)
[2019-06-19 16:00] VITALS: BP 134/76
--- NOTE | 2019-06-19 16:33 | NUR ---
[facility] WITH NOT BED AVAILABLE AT THIS TIME,
--- NOTE | 2019-06-19 17:37 | NUR ---
Discharge instructions reviewed with patient/family. Patient receptive and verbalizes understanding. Follow-up care arranged. Written instructions given to patient/family. TAHMINA DAMON
--- NOTE | 2019-06-19 17:37 | NUR ---
NURSE TO NURSE CALLED TO DANDY CERVANTES AT [facility]
== END 2019-06-19 17:37 | disposition short-term general hospital (02) | DRG 871 ==
LOC: ED 21:56 → EDHOLD 06-19 02:30 → 4E 06-19 03:05
PROVIDERS: Emergency Medicine; Student in an Organized Health Care Education/Training Program; ADMIT Internal Medicine
DX: A41.9 Sepsis, unspecified organism (principal); J69.0 Pneumonitis due to inhalation of food and vomit; I44.2 Atrioventricular block, complete; E44.0 Moderate protein-calorie malnutrition; E86.0 Dehydration; R07.89 Other chest pain; J44.9 Chronic obstructive pulmonary disease, unspecified; I11.0 Hypertensive heart disease with heart failure; I50.9 Heart failure, unspecified; R73.9 Hyperglycemia, unspecified; E87.8 Other disorders of electrolyte and fluid balance, not elsewhere classified; D64.9 Anemia, unspecified; E78.5 Hyperlipidemia, unspecified; E55.9 Vitamin D deficiency, unspecified; E53.8 Deficiency of other specified B group vitamins; R91.8 Other nonspecific abnormal finding of lung field; E87.6 Hypokalemia; Z68.27 Body mass index [BMI] 27.0-27.9, adult; Z90.49 Acquired absence of other specified parts of digestive tract; Z87.891 Personal history of nicotine dependence; Z82.49 Family history of ischemic heart disease and other diseases of the circulatory system; Z88.8 Allergy status to other drugs, medicaments and biological substances; Z88.1 Allergy status to other antibiotic agents; Z91.013 Allergy to seafood; Z79.899 Other long term (current) drug therapy; Z85.038 Personal history of other malignant neoplasm of large intestine

== ENCOUNTER 2019-07-02 13:20 | Inpatient (IN) | payer MEDICARE, OTHER ==
[~2019-07-02] VITALS: Ht 160 cm; Wt 64.6 kg
[~2019-07-02 13:20] MED LIST changes: +LEVAQUIN750 M1 PO; +MUCINEX ER600 MG PO
[2019-07-02 13:22] VITALS: BP 132/59
--- NOTE | 2019-07-02 14:54 | NUR ---
PT REPORTS THAT SHE FEELS THAT IT IS HARDER TO TAKE A DEEP BRETH WITH THE RIGHT LUNG HER PULSE OX IF 95% ON RA. SHE WAS PLACED ON 2L NC AND SHE DOES USE O2 AT HOME PRN.
--- NOTE | 2019-07-02 15:30 | NUR ---
PT TO THE BEDSIDE TOILET WITH A STAND BY ASSIST.
[2019-07-02 16:53] LABS: BASO % 0.5 % (0.0-1.0); EOS % 0.3 % (1.0-4.0); HEMATOCRIT 37.7 % (37.0-47.0); HEMOGLOBIN 12.1 g/dl (12.0-16.0); LYMPH # 0.9 10*3/uL (1.3-4.4); LYMPH % 14.7 % (27.0-41.0); MEAN CELL VOLUME 95.2 fl (81.0-99.0); MEAN CORPUSCULAR HGB 30.6 pg (27.0-31.0); MEAN CORPUSCULAR HGB CONC 32.1 g/dl (33.0-37.0); MEAN PLATELET VOLUME 9.7 fl (9.6-12.3); MONO # 0.7 10*3/uL (0.1-1.0); MONO % 11.4 % (3.0-9.0); NEUT # 4.5 10*3/uL (2.3-7.9); NEUT % 72.9 % (47.0-73.0); PLATELET COUNT AUTOMATED 296 10*3/uL (130-400); RED BLOOD COUNT 3.96 10*6/uL (4.10-5.10); RED CELL DISTRI WIDTH 13.2 % (0-14.5); WHITE BLOOD COUNT 6.1 10*3/uL (4.8-10.8)
[2019-07-02 17:01] VITALS: BP 128/74
[2019-07-02 17:03] LABS: ACT PARTIAL THROMBO TIME 29.5 SECONDS (20.0-32.1)
[2019-07-02 17:49] LABS: ALBUMIN 2.9 gm/dl (3.1-4.5); ALKALINE PHOSPHATASE 48 U/L (45-117); BUN 9 mg/dl (7-24); CHLORIDE 102 mmol/L (98-107); CREATININE 0.81 mg/dL (0.55-1.02); POTASSIUM 4.2 mmol/L (3.5-5.1); SGOT/AST 27 IU/L (3-35); SGPT/ALT 21 U/L (12-78); SODIUM 137 mmol/L (136-145); TOTAL PROTEIN 6.6 gm/dL (6.4-8.2)
[2019-07-02 17:51] LABS: TROPONIN I < 0.015 ng/ml (<0.045)
--- NOTE | 2019-07-02 19:45 | NUR ---
Time: 1944 A 78 year old MALE admitted to 5E under services of LEIGH CRAMER DO. Pt. arrived via stretcher from ER. Chief complaint: GENERALIZED WEAKNESS. NEENA PATTERSON
--- NOTE | 2019-07-02 19:50 | NUR ---
PATIENT UNABLE TO RECALL HOME MEDICATIONS. STATES HER DAUGHTER WILL BE HERE IN THE MORNING AND KNOWS THEM
[2019-07-02 19:52] VITALS: BP 134/57
--- NOTE | 2019-07-02 20:21 | NUR ---
NOTIFIED DR. FOLEY OF NEW CONSULT.
--- NOTE | 2019-07-02 21:00 | NUR ---
ATTEMPTED TO GIVE PATIENT SCHEDULED MEDICATIONS. IV FROM ER NOT WORKING. PATIENT REFUSING TO LET THIS NURSE START NEW IV. STATES SHE HAS BEEN STUCK TOO MANY TIMES ALREADY. NOTIFIED DR. SQUIRES. NO NEW ORDERS RECEIVED. WILL CONTINUE TO MONITOR.
[2019-07-03] VITALS: BP 113/59
--- NOTE | 2019-07-03 03:47 | NUR ---
PATIENT C.O HEADACHE. MEDICATED WITH TYLENOL. WILL CONTINUE TO MONITOR.
[2019-07-03 04:08] LABS: BILIRUBIN NEGATIVE (NEGATIVE); BLOOD NEGATIVE (NEGATIVE); CLARITY CLEAR (CLEAR); COLOR YELLOW (YELLOW); GLUCOSE NEGATIVE (NEGATIVE); KETONE 1+ (NEGATIVE); LEUKO ESTERASE NEGATIVE (NEGATIVE); NITRITE NEGATIVE (NEGATIVE); SPECIFIC GRAVITY 1.015 (1.005-1.030); UROBILINOGEN 0.2 E.U./dl (0.2-1.0)
[2019-07-03 04:10] LABS: RBC 0-2 rbc/hpf (0-2)
--- NOTE | 2019-07-03 04:23 | NUR ---
ZORAARUNA HICKEY [id number] Please refer to the physician's history and physical for past medical history, comorbid conditions, and allergies. Diagnosis: PNEUMONITIS Edvin Score: 17,AT RISK WOUND DESCRIPTIONS: Wound Number: 1 Location of the wound: left chest wall Type of wound: surgical Size: 0.2cm x 6.5cm x <0.1cm Tunneling: none Undermining: none Sinus Tract: none Presence of Exudate: none Amount: None Color: Garden Odor: None Periwound Skin Appearance: Normal Wound edges: approximated with 4 sutures Pain (associated with wound): tender to touch How does patient state this happened? pt stated had surgery last tuesday Surface the patient is resting on: Isoflex SKIN PREVENTION RECOMMENDATION: 1. Pressure redistribution support surface as appropriate 2. Elevate heels 3. Remove boots/TEDS every shift and reapply 4. Head of bed 30 degrees as tolerated 5. Assess nutrition and hydration 6. Manage moisture 7. Avoid the use of containment devices while in bed 8. Use absorptive products on surfaces limit layers of linens on bed 9. Turn and reposition every 1-2 hours in bed and every 1 hour in chair as tolerated 10. Weight shifts every 15 minutes while up in chair 11. Offloading with pillows or device to keep heels elevated off bed 12. Monitor skin at least every shift 13. Inspect under medical devices twice a day WOUND TREATMENT RECOMMENDATIONS: Keep left chest wall clean and dry and maintatin steristripts until they fall off.
[2019-07-03 06:52] LABS: BASO % 0.5 % (0.0-1.0); EOS % 0.2 % (1.0-4.0); HEMATOCRIT 41.4 % (37.0-47.0); HEMOGLOBIN 12.9 g/dl (12.0-16.0); LYMPH % 17.5 % (27.0-41.0); MEAN CELL VOLUME 95.6 fl (81.0-99.0); MEAN CORPUSCULAR HGB 29.8 pg (27.0-31.0); MEAN CORPUSCULAR HGB CONC 31.2 g/dl (33.0-37.0); MEAN PLATELET VOLUME 9.8 fl (9.6-12.3); MONO # 0.8 10*3/uL (0.1-1.0); MONO % 13.6 % (3.0-9.0); NEUT # 3.8 10*3/uL (2.3-7.9); NEUT % 67.8 % (47.0-73.0); PLATELET COUNT AUTOMATED 286 10*3/uL (130-400); RED BLOOD COUNT 4.33 10*6/uL (4.10-5.10); RED CELL DISTRI WIDTH 13.1 % (0-14.5); WHITE BLOOD COUNT 5.5 10*3/uL (4.8-10.8)
[2019-07-03 06:55] LABS: ALKALINE PHOSPHATASE 49 U/L (45-117); BUN 10 mg/dl (7-24); CHLORIDE 100 mmol/L (98-107); CREATININE 0.77 mg/dL (0.55-1.02); PHOSPHOROUS 3.5 mg/dL (2.5-4.9); POTASSIUM 3.9 mmol/L (3.5-5.1); SGOT/AST 30 IU/L (3-35); SGPT/ALT 22 U/L (12-78); SODIUM 131 mmol/L (136-145); TOTAL PROTEIN 7.2 gm/dL (6.4-8.2)
[2019-07-03 08:00] VITALS: BP 109/56
--- NOTE | 2019-07-03 09:00 | NUR ---
Schedule Analyst in to talk to patient. Patient states lives at home with alone. There are no steps in the home. Physician: mary tobar Pharmacy: [facility] Home health services: [facility] Patient's level of ADLs: MINIMAL ASSIST Patient has working utilities: all working DME: none Follow-up physician's appointment after d/c: will be made by hospitalist nurse director upon discharge Does patient want to access PORTAL?: no Discharge plan discussed with patient, she states she lives at home alone, she recently was discharged from [facility] where she had a pacemaker inserted, she stated she returned home and has [facility] health currently, discussed with her a short term long-term for 5 days of rehab to increase strenth prior to returning home, she stated she wanted to return home and would like her home health to continue, case management will notify Alia GALLEGO when patient is medically stable for discharge, case management will follow. JOSE D JOHNSTON
--- NOTE | 2019-07-03 10:30 | NUR ---
Occupational Therapy evaluation completed on five with full evaluation to follow. Recommend occupational therapy per plan of care and SNF upon discharge. Thank you for this referral. DIONE GREENBERG OTR/L
--- NOTE | 2019-07-03 11:05 | NUR ---
Physical Therapy evaluation completed with full evaluation to follow. Recommend physical therapy per plan of care and SNF upon discharge. Thank you for this referral. Jeanie Gee PT
[2019-07-03 12:00] VITALS: BP 122/76
--- NOTE | 2019-07-03 12:07 | NUR ---
case management re visits patient with daughter present, again discussed and explained the services at a [facility], daughter and patient were now agreeable to a short term skilled, patient stated she was previously at [facility] and would like to return, social service assistant will send referral to [facility]. patient will need a 3 night stay to go. will be able to go if accepted on 07/05/19
[2019-07-03] MEDS ORDERED: ALBUTEROL2.5 MG/0.5 INH (14:36)
[2019-07-03] MEDS ORDERED: ASPIRIN CHILDRE81 MG PO (14:36)
[2019-07-03] MEDS ORDERED: SYMB160 INH (14:37)
[2019-07-03] MEDS ORDERED: *Pletal50 MG PO (14:37)
--- NOTE | 2019-07-03 14:37 | NUR ---
MED REC UPDATED BASED ON LIST PROVIDED BY DAUGHTER.
--- NOTE | 2019-07-03 14:56 | NUR ---
NAIL MILL WORKER faxed referral information to [facility] on this date. NAIL MILL WORKER will continue to follow and address needs as they arise.
--- NOTE | 2019-07-03 15:45 | NUR ---
BP 92/50. DR PICKENS NOTIFIED AND STATED SHE WILL PUT SOMETHING IN.
[2019-07-03 16:00] VITALS: BP 89/43
[2019-07-03 20:00] VITALS: BP 127/59
--- NOTE | 2019-07-03 23:49 | NUR ---
REQUESTED AND RECEIVED TYLENOL AND RESTORIL PER PRN ORDER FOR COMPLAINTS OF BACK PAIN RATING A 5 AND TO ASSIST WITH SLEEP. WILL MONITOR
[2019-07-04] VITALS: BP 109/89
--- NOTE | 2019-07-04 02:00 | NUR ---
PATIENT SLEEPING, RESPIRATIONS EASY, NON LABORED. RESTORIL EFFECTIVE. WILL COTNINUE TO MONITOR.
[2019-07-04 06:25] LABS: BUN 17 mg/dl (7-24); CHLORIDE 104 mmol/L (98-107); CREATININE 0.88 mg/dL (0.55-1.02); POTASSIUM 4.3 mmol/L (3.5-5.1); SODIUM 138 mmol/L (136-145)
[2019-07-04 08:00] VITALS: BP 106/76
--- NOTE | 2019-07-04 09:00 | NUR ---
case management visits with patient, she will be discharged to [facility] short term alf when medically stable, per medicare regulations she will be eligible to be discharged 07/05/19 if medically stable, case management will follow
--- NOTE | 2019-07-04 09:08 | NUR ---
hospital exemption completed for [facility]. Patient accepted, 3 night stay required. patient ok to go 07/05/19.
--- NOTE | 2019-07-04 09:20 | NUR ---
PHYSICAL THERAPY Patient seen this am 1:1 for therapy visit and was sitting up on EOB with Nurse present for Med pass. Patient identified by name / and reports no new c/o's at this time. OT medical administrative assistant was also present for observation only this session as patient transfers sit to stand with MIN/CGA. Patient ambulated VP [employer]ODUCTION/CGA to bathroom, 10'x 1, demonstrating impulsive behaviour and very unsteady gait pattern. Patient declined therapist request for use of wh walker and returned to EOB sit for brief rest. Patient encouraged to use AD to improve safety awareness and ambulated additional 40'x 1, wh walker, CGA, demonstrating improved smoother gait pattern, decreased stride and several bouts of POOR safety awareness. Patient returned to supine in bed and remained with call light, tray table, telephone, bed alarm for safety. Will continue per POC as tolerated, total treatment time 16 minutes. Franky Juarez, EGG SORTER
--- NOTE | 2019-07-04 09:40 | NUR ---
OT NOTE Pt was seen this A.M. 1:1 for 25 minute OT session. Upon arrival pt was sitting upright on the EOB. Pt identified by name and and had no complaints at this time. While sitting EOB pt donned depends with SBA. Sit to stand completed from bed level with CGA and use of w/w. Challenged pt's static standing tolerance needed for increased I in self care tasks and functional transfers. Pt was able to tolerate aprox 4 minutes before sitting due to fatigue. Challenged pt's dynamic standing balance while weight shifting, crossing midline, and reaching over all planes and pt was able to maintain F- standing balance. Functional mobility was then completed to the bathroom with CGA and use of w/w, with multiple LOB occuring due to being impulsive and poor safety awreness requiring Paras to correct. Pt was educated on slowing down and safety awarenss and pt continued with fair carry over. Pt transferred on/off standard commode with Paras due to low surface and use of grab bar for UE support. Clothing management completed with CGA and toilet hygiene completed with SBA while seated. Functional mobility was then completed back to the EOB with CGA and use of w/w. There she transferred sit to supine with SBA and was left with call light in hand, tray table in place, and bed alarm activated for safety. COntinue with rec D/C plan to SNF. MARY uLna/Vahid
[2019-07-04 12:00] VITALS: BP 110/56
[2019-07-04 16:00] VITALS: BP 99/60
--- NOTE | 2019-07-04 19:30 | NUR ---
ASSUMED CARE OF PATIENT. PATIENT VOICES NO COMPLAINTS AT THIS TIME. RESPIRATIONS EASY, NON LABORED. NO SIGNS OF DISTRESS. BED IN LOWEST POSITION CALL LIGHT, BED ALARM ON. WILL CONTINUE TO MONITOR.
[2019-07-04 20:00] VITALS: BP 90/78
--- NOTE | 2019-07-04 21:37 | NUR ---
PATIENT MEDICATED WITH RESTORIL AND TYLENOL FOR GENERALIZED PAIN AND TO HELP SLEEP. WILL CHECK EFFECTIVENESS.
[2019-07-05] VITALS: BP 115/95
--- NOTE | 2019-07-05 01:00 | NUR ---
PATTIENT SLEEPING, NO SIGNS OF DISTRESS. RESPIRATIONS EASY, NON LABORED. BED IN LOWEST POSITION,CALL LIGHT WITHIN REACH. BED ALARM ON. WILL CONTINUE TO MONTIOR.
--- NOTE | 2019-07-05 04:30 | NUR ---
Patient will continue to follow up with caridology with any concerns regarding surgical incision
[2019-07-05 06:41] LABS: CREATININE 1.33 mg/dL (0.55-1.02); POTASSIUM 3.4 mmol/L (3.5-5.1)
[2019-07-05 08:00] VITALS: BP 122/51
--- NOTE | 2019-07-05 09:00 | NUR ---
OT NOTE Pt was seen this A.M. 1:1 for 17 minute OT session. Upon arrival pt was supine in bed. Pt identified by name and and had complaints of 10/10 B ankle pain at rest and 0/10 B ankle pain with activity. Pt transferred supine to sit EOB with SBA. Sit to stand completed from bed level with CGA and use of w/w for UE support. Functional mobility was then completed to the bathroom with CGA and use of w/w. Pt transferred on to low surface with CGA and off with Paras. Pt then stood sink side while washing her hands with CGA for safety. Challenged pt's static standing tolerance needed for increased I in self care tasks and functional transfers, pt was able to tolerate aprox 5 minutes before sitting due to fatigue. Pt was left supine in bed with call light in hand, tray table in place, and bed alarm activated for safety. Continue with rec D/C plan to SNF. CASSIDY Luna
--- NOTE | 2019-07-05 09:02 | NUR ---
PHYSICAL THERAPY TREATMENT TIME: 0820 AM - 0840 AM 20 MINUTES Patient presented to therapy in supine with head of bed elevated and bed alarm activated with report of 10/10 pain in the bilateral ankles and report of wanting to eat breakfast when it arrives. Patient gives informed consent for treatment. Patient was identified by name and on wristband. Patient is not on spO2. Patient transferred supine to sitting at EOB with SBA. Patient completed sit to stand from EOB with CGA. Patient ambulated with Wh Walker and CGA for 60' X 1 AND 55' X 1 respectively, with no LOB or SOB. Patient has 0/10 in the bilateral ankles while patient was ambulating. Patient transferred <> low chair MIN A X 1. Patient transferred back to supine in bed with SBA. Patient was left in supine in bed with head of bed elevated, call light within reach and bed alarm activated. Patient's tray left in front of her with breakfast on it. Patient was 1:1 with this CURING ROOM SUPERVISOR for 20 minutes total. KATEY ALVARADO CURING ROOM SUPERVISOR
[2019-07-05] MEDS ORDERED: PREDNISONE10 MG PO (10:23)
[2019-07-05] MEDS ORDERED: LEVAQUIN750 M1 PO (10:23)
--- NOTE | 2019-07-05 11:09 | NUR ---
Nutritional Support Services Note: Pt is on a regular diet consuming 100% of meals. Dx of pneumonitis. Healing surgical incision noted to left upper chest. CBW: 142#. Ht: 5'2. Continue to encourage good PO intakes to support healing of incision. No other nutrition intervention needed at this time. Will follow if needed. LYNNETET Joseph social media intern
--- NOTE | 2019-07-05 11:24 | NUR ---
Report called to Maria Isabel at [facility].
--- NOTE | 2019-07-05 11:35 | NUR ---
Medicated with tylenol per prn order for complaints of headache.
--- NOTE | 2019-07-05 11:46 | NUR ---
Patient is discharged to [facility] via [facility] @ 1300. DC information faxed, NH, nursing/forest fire warden and family notified.
--- NOTE | 2019-07-05 13:00 | NUR ---
PT dc in care of ambulance to [facility]. Iv was removed by Emily Mccord prior to dc.
--- NOTE | 2019-07-05 13:37 | NUR ---
Spoke with pt daughter Summer regarding making follow up with Dr. Luis in one to 2 weeks past discharge. States she will take care of making follow up appointment.
--- NOTE | 2019-07-06 07:18 | NUR ---
PHYSICAL THERAPY CO-SIGN I approve of the Physical Therapy notes written above. Jeanie Gee PT
--- NOTE | 2019-07-06 12:33 | NUR ---
OCCUPATIONAL THERAPY CO-SIGN I approve of the Occupational Therapy notes written above. TARA REYES OTR/Vahid
== END 2019-07-05 13:29 | disposition other institution (70) | DRG 178 ==
LOC: ED 13:20 → 5E 18:23 → EDHOLD 18:23 → 5E 19:47
PROVIDERS: Emergency Medicine; Internal Medicine; ADMIT Internal Medicine
DX: J15.6 Pneumonia due to other Gram-negative bacteria (principal); E87.1 Hypo-osmolality and hyponatremia; C20 Malignant neoplasm of rectum; E44.0 Moderate protein-calorie malnutrition; J44.0 Chronic obstructive pulmonary disease with (acute) lower respiratory infection; J18.9 Pneumonia, unspecified organism; I50.9 Heart failure, unspecified; R91.8 Other nonspecific abnormal finding of lung field; I11.0 Hypertensive heart disease with heart failure; E78.5 Hyperlipidemia, unspecified; E83.41 Hypermagnesemia; E53.8 Deficiency of other specified B group vitamins; E87.6 Hypokalemia; R73.9 Hyperglycemia, unspecified; Z95.0 Presence of cardiac pacemaker; Z87.891 Personal history of nicotine dependence; Z88.8 Allergy status to other drugs, medicaments and biological substances; Z88.1 Allergy status to other antibiotic agents; Z91.013 Allergy to seafood; Z79.82 Long term (current) use of aspirin; Z79.899 Other long term (current) drug therapy; Z90.49 Acquired absence of other specified parts of digestive tract; Z82.49 Family history of ischemic heart disease and other diseases of the circulatory system

== ENCOUNTER 2020-11-04 06:57 | Inpatient (IN) | payer MEDICARE, OTHER ==
[~2020-11-04] VITALS: Ht 160 cm; Wt 66.4 kg
[~2020-11-04 06:57] MED LIST changes: +*Pletal50 MG PO; +ALBUTEROL2.5 MG/0.5 INH; +SYMB160 INH
[2020-11-04 07:00] VITALS: BP 136/67
[2020-11-04 07:12] LABS: BASO # 0.1 10*3/uL (0.0-0.1); BASO % 0.9 % (0.0-1.0); EOS # 0.2 10*3/uL (0.0-0.4); EOS % 3.6 % (1.0-4.0); HEMATOCRIT 38.2 % (37.0-47.0); LYMPH # 1.5 10*3/uL (1.3-4.4); LYMPH % 25.4 % (27.0-41.0); MEAN CELL VOLUME 92.7 fl (81.0-99.0); MEAN CORPUSCULAR HGB 29.9 pg (27.0-31.0); MEAN CORPUSCULAR HGB CONC 32.2 g/dl (33.0-37.0); MEAN PLATELET VOLUME 9.4 fl (9.6-12.3); MONO # 0.7 10*3/uL (0.1-1.0); MONO % 11.8 % (3.0-9.0); NEUT # 3.4 10*3/uL (2.3-7.9); NEUT % 57.8 % (47.0-73.0); PLATELET COUNT AUTOMATED 278 10*3/uL (130-400); RED BLOOD COUNT 4.12 10*6/uL (4.10-5.10); RED CELL DISTRI WIDTH 13.2 % (0-14.5); WHITE BLOOD COUNT 5.9 10*3/uL (4.8-10.8)
[2020-11-04 07:38] LABS: ALBUMIN 2.5 gm/dl (3.1-4.5); ALKALINE PHOSPHATASE 51 U/L (45-117); BUN 7 mg/dl (7-24); CHLORIDE 107 mmol/L (98-107); CREATININE 0.64 mg/dL (0.55-1.02); POTASSIUM 2.9 mmol/L (3.5-5.1); SGOT/AST 43 IU/L (3-35); SGPT/ALT 22 U/L (12-78); SODIUM 141 mmol/L (136-145); TOTAL PROTEIN 5.9 gm/dL (6.4-8.2)
[2020-11-04 07:40] LABS: TROPONIN I < 0.015 ng/ml (<0.045)
[2020-11-04 08:40] VITALS: BP 135/63
[2020-11-04 10:26] VITALS: BP 135/63
[2020-11-04 10:41] VITALS: BP 142/60
[2020-11-04] MEDS ORDERED: MOMETASONE FURO17 GM NAS (13:21)
[2020-11-04] MEDS ORDERED: TOPROL XL25 MG PO (13:50)
[2020-11-04] MEDS ORDERED: VITAMIN E100 UNIT PO (13:53)
[2020-11-04] MEDS ORDERED: B COMPLEX1 EACH PO (13:54)
[2020-11-04] MEDS ORDERED: VITAMIN D250 MC1 PO (13:54)
[2020-11-04] MEDS ORDERED: Oscal,Oyster S500 MG PO (13:55)
[2020-11-04 16:00] VITALS: BP 120/68
[2020-11-04 20:00] VITALS: BP 130/63
[2020-11-04 21:01] LABS: BUN 7 mg/dl (7-24); CHLORIDE 109 mmol/L (98-107); CREATININE 0.65 mg/dL (0.55-1.02); SODIUM 142 mmol/L (136-145)
[2020-11-04 21:05] LABS: POTASSIUM 4.2 mmol/L (3.5-5.1)
[2020-11-04 21:47] LABS: BILIRUBIN Negative (Negative); BLOOD Negative (Negative); CLARITY Clear (Clear); COLOR Yellow (Yellow); GLUCOSE Negative (Negative); KETONE Negative (Negative); LEUKO ESTERASE Negative (Negative); NITRITE Negative (Negative)
[2020-11-04 21:51] LABS: BACTERIA TRACE; RBC 0-2 rbc/hpf (0-2)
[2020-11-05] VITALS: BP 119/50
[2020-11-05 06:31] LABS: BASO # 0.1 10*3/uL (0.0-0.1); BASO % 0.9 % (0.0-1.0); EOS # 0.1 10*3/uL (0.0-0.4); EOS % 2.2 % (1.0-4.0); HEMATOCRIT 38.9 % (37.0-47.0); LYMPH # 1.1 10*3/uL (1.3-4.4); LYMPH % 18.6 % (27.0-41.0); MEAN CELL VOLUME 91.1 fl (81.0-99.0); MEAN CORPUSCULAR HGB 29.3 pg (27.0-31.0); MEAN CORPUSCULAR HGB CONC 32.1 g/dl (33.0-37.0); MEAN PLATELET VOLUME 9.4 fl (9.6-12.3); MONO # 0.8 10*3/uL (0.1-1.0); MONO % 12.8 % (3.0-9.0); NEUT # 3.8 10*3/uL (2.3-7.9); NEUT % 65.2 % (47.0-73.0); PLATELET COUNT AUTOMATED 308 10*3/uL (130-400); RED BLOOD COUNT 4.27 10*6/uL (4.10-5.10); RED CELL DISTRI WIDTH 13.6 % (0-14.5); WHITE BLOOD COUNT 5.9 10*3/uL (4.8-10.8)
[2020-11-05 06:41] LABS: ACT PARTIAL THROMBO TIME 28.8 SECONDS (20.0-32.1); INTERNATIONAL NORM RATIO 1.1 (2.0-3.5)
[2020-11-05 06:54] LABS: CHLORIDE 106 mmol/L (98-107); POTASSIUM 4.1 mmol/L (3.5-5.1); SODIUM 139 mmol/L (136-145)
[2020-11-05 07:08] LABS: ALBUMIN 2.8 gm/dl (3.1-4.5); ALKALINE PHOSPHATASE 49 U/L (45-117); BUN 7 mg/dl (7-24); CREATININE 0.61 mg/dL (0.55-1.02); FREE T4 0.77 ng/dl (0.76-1.46); SGOT/AST 49 IU/L (3-35); SGPT/ALT 22 U/L (12-78); THYROID STIM HORMONE (HS) 0.734 uIU/ml (0.358-4.75)
[2020-11-05 08:00] VITALS: BP 143/89
[2020-11-05 12:00] VITALS: BP 120/55
[2020-11-05 16:00] VITALS: BP 113/62
[2020-11-05 20:00] VITALS: BP 132/96
[2020-11-06] VITALS (8 sets, daily range): BP systolic 77–137; BP diastolic 40–86
[2020-11-06 06:42] LABS: BASO % 0.6 % (0.0-1.0); EOS # 0.2 10*3/uL (0.0-0.4); EOS % 3.5 % (1.0-4.0); LYMPH # 1.3 10*3/uL (1.3-4.4); LYMPH % 23.5 % (27.0-41.0); MEAN CORPUSCULAR HGB 29.1 pg (27.0-31.0); MEAN CORPUSCULAR HGB CONC 31.4 g/dl (33.0-37.0); MEAN PLATELET VOLUME 9.9 fl (9.6-12.3); MONO # 0.7 10*3/uL (0.1-1.0); MONO % 12.1 % (3.0-9.0); NEUT # 3.2 10*3/uL (2.3-7.9); NEUT % 59.9 % (47.0-73.0); PLATELET COUNT AUTOMATED 283 10*3/uL (130-400); RED BLOOD COUNT 3.98 10*6/uL (4.10-5.10); RED CELL DISTRI WIDTH 13.7 % (0-14.5); WHITE BLOOD COUNT 5.4 10*3/uL (4.8-10.8)
[2020-11-06 06:52] LABS: BUN 9 mg/dl (7-24); CHLORIDE 108 mmol/L (98-107); CREATININE 0.69 mg/dL (0.55-1.02); POTASSIUM 3.5 mmol/L (3.5-5.1); SODIUM 141 mmol/L (136-145)
[2020-11-07] VITALS: BP 134/57
[2020-11-07 08:00] VITALS: BP 120/60
[2020-11-07] MEDS ORDERED: DOXYCYCLINE100 M3 PO (09:52)
== END 2020-11-07 12:54 | DRG 871 ==
LOC: ED 06:57 → EDHOLD 09:29 → 4E 09:29
PROVIDERS: Emergency Medicine; Social Worker Clinical; ADMIT Internal Medicine; ATTEND Internal Medicine
PROC: 0DJ08ZZ Inspection of Upper Intestinal Tract, Via Natural or Artificial Opening Endoscopic (ICD-10-PCS; principal; 2020-11-06)
DX: A41.9 Sepsis, unspecified organism (principal); J69.0 Pneumonitis due to inhalation of food and vomit; E43 Unspecified severe protein-calorie malnutrition; C20 Malignant neoplasm of rectum; S82.831A Other fracture of upper and lower end of right fibula, initial encounter for closed fracture; Z20.822 Contact with and (suspected) exposure to COVID-19; J45.909 Unspecified asthma, uncomplicated; E78.5 Hyperlipidemia, unspecified; I10 Essential (primary) hypertension; E87.6 Hypokalemia; R26.2 Difficulty in walking, not elsewhere classified; J44.9 Chronic obstructive pulmonary disease, unspecified; E78.2 Mixed hyperlipidemia; E83.41 Hypermagnesemia; E83.39 Other disorders of phosphorus metabolism; K29.70 Gastritis, unspecified, without bleeding; R59.0 Localized enlarged lymph nodes; R13.10 Dysphagia, unspecified; D50.9 Iron deficiency anemia, unspecified; Z88.8 Allergy status to other drugs, medicaments and biological substances; Z88.1 Allergy status to other antibiotic agents; Z91.041 Radiographic dye allergy status; Z91.013 Allergy to seafood; Z90.49 Acquired absence of other specified parts of digestive tract; Z82.49 Family history of ischemic heart disease and other diseases of the circulatory system; Z87.891 Personal history of nicotine dependence; Z78.9 Other specified health status; Z98.890 Other specified postprocedural states; X58.XXXA Exposure to other specified factors, initial encounter; Y93.89 Activity, other specified; Y92.89 Other specified places as the place of occurrence of the external cause; Y99.8 Other external cause status; Z68.23 Body mass index [BMI] 23.0-23.9, adult

== ENCOUNTER 2020-11-11 21:16 | Inpatient (IN) | payer MEDICARE, OTHER ==
[~2020-11-11] VITALS: Ht 160 cm; Wt 58.5 kg
[~2020-11-11 21:16] MED LIST changes: +B COMPLEX1 EACH PO; +DOXYCYCLINE100 M3 PO; +MOMETASONE FURO17 GM NAS; +Oscal,Oyster S500 MG PO; +VITAMIN D250 MC1 PO; +VITAMIN E100 UNIT PO
[2020-11-11 21:28] VITALS: BP 90/50
[2020-11-11 21:30] VITALS: BP 90/50
[2020-11-11 21:56] LABS: BASO # 0.1 10*3/uL (0.0-0.1); BASO % 0.8 % (0.0-1.0); EOS # 0.2 10*3/uL (0.0-0.4); EOS % 2.1 % (1.0-4.0); HEMATOCRIT 41.7 % (37.0-47.0); LYMPH # 1.3 10*3/uL (1.3-4.4); LYMPH % 16.1 % (27.0-41.0); MEAN CORPUSCULAR HGB 29.7 pg (27.0-31.0); MEAN CORPUSCULAR HGB CONC 32.6 g/dl (33.0-37.0); MEAN PLATELET VOLUME 9.3 fl (9.6-12.3); MONO # 0.7 10*3/uL (0.1-1.0); MONO % 9.4 % (3.0-9.0); NEUT # 5.5 10*3/uL (2.3-7.9); PLATELET COUNT AUTOMATED 366 10*3/uL (130-400); RED BLOOD COUNT 4.58 10*6/uL (4.10-5.10); RED CELL DISTRI WIDTH 13.8 % (0-14.5); WHITE BLOOD COUNT 7.7 10*3/uL (4.8-10.8)
[2020-11-11 22:18] VITALS: BP 99/45
[2020-11-11 22:26] LABS: ALBUMIN 2.6 gm/dl (3.1-4.5); CREATININE 1.56 mg/dL (0.55-1.02); TOTAL PROTEIN 6.2 gm/dL (6.4-8.2); TROPONIN I 0.028 ng/ml (<0.045)
[2020-11-11 22:34] LABS: POTASSIUM 4.8 mmol/L (3.5-5.1)
[2020-11-11 23:39] LABS: BILIRUBIN Negative (Negative); BLOOD Negative (Negative); CLARITY Clear (Clear); COLOR Yellow (Yellow); GLUCOSE Negative (Negative); KETONE Trace (Negative); LEUKO ESTERASE Negative (Negative); NITRITE Negative (Negative)
[2020-11-12] VITALS (10 sets, daily range): BP systolic 85–108; BP diastolic 35–54
[2020-11-12 06:00] LABS: ALBUMIN 2.4 gm/dl (3.1-4.5); CREATININE 1.19 mg/dL (0.55-1.02); POTASSIUM 4.5 mmol/L (3.5-5.1); TOTAL PROTEIN 5.4 gm/dL (6.4-8.2)
[2020-11-12 06:12] LABS: BASO # 0.1 10*3/uL (0.0-0.1); MEAN CORPUSCULAR HGB 29.4 pg (27.0-31.0); MEAN PLATELET VOLUME 9.8 fl (9.6-12.3)
[2020-11-12 06:36] LABS: EOS # 0.2 10*3/uL (0.0-0.4); HEMATOCRIT 38.3 % (37.0-47.0); LYMPH % 15.9 % (27.0-41.0); MEAN CORPUSCULAR HGB CONC 30.3 g/dl (33.0-37.0); MONO # 0.5 10*3/uL (0.1-1.0); NEUT # 4.2 10*3/uL (2.3-7.9); NEUT % 70.6 % (47.0-73.0); PLATELET COUNT AUTOMATED 299 10*3/uL (130-400); RED BLOOD COUNT 3.94 10*6/uL (4.10-5.10); RED CELL DISTRI WIDTH 14.1 % (0-14.5)
[2020-11-12 06:39] LABS: MEAN CELL VOLUME 97.2 fl (81.0-99.0)
[2020-11-12 06:43] LABS: ACT PARTIAL THROMBO TIME 33.3 SECONDS (20.0-32.1); INTERNATIONAL NORM RATIO 1.1 (2.0-3.5)
[2020-11-13] VITALS: BP 93/43
[2020-11-13 06:01] LABS: ALBUMIN 2.5 gm/dl (3.1-4.5); CHLORIDE 114 mmol/L (98-107); CREATININE 0.85 mg/dL (0.55-1.02); SGOT/AST 106 IU/L (3-35); SGPT/ALT 30 U/L (12-78); SODIUM 142 mmol/L (136-145)
[2020-11-13 06:04] LABS: ALKALINE PHOSPHATASE 56 U/L (45-117); TOTAL PROTEIN 5.8 gm/dL (6.4-8.2)
[2020-11-13 06:06] LABS: BASO # 0.1 10*3/uL (0.0-0.1); BASO % 1.4 % (0.0-1.0); EOS # 0.2 10*3/uL (0.0-0.4); EOS % 3.1 % (1.0-4.0); HEMATOCRIT 39.8 % (37.0-47.0); LYMPH # 0.9 10*3/uL (1.3-4.4); LYMPH % 17.8 % (27.0-41.0); MEAN CELL VOLUME 94.8 fl (81.0-99.0); MEAN CORPUSCULAR HGB 28.8 pg (27.0-31.0); MEAN CORPUSCULAR HGB CONC 30.4 g/dl (33.0-37.0); MEAN PLATELET VOLUME 9.7 fl (9.6-12.3); MONO # 0.5 10*3/uL (0.1-1.0); MONO % 9.8 % (3.0-9.0); NEUT # 3.5 10*3/uL (2.3-7.9); NEUT % 67.5 % (47.0-73.0); PLATELET COUNT AUTOMATED 335 10*3/uL (130-400); WHITE BLOOD COUNT 5.2 10*3/uL (4.8-10.8)
[2020-11-13 06:24] LABS: BUN 23 mg/dl (7-24)
[2020-11-13 08:00] VITALS: BP 104/69
[2020-11-13 12:00] VITALS: BP 100/77
[2020-11-13 16:00] VITALS: BP 106/50
[2020-11-13 20:00] VITALS: BP 95/52
[2020-11-14] VITALS: BP 105/49
[2020-11-14 07:30] LABS: BASO % 0.2 % (0.0-1.0); LYMPH # 0.5 10*3/uL (1.3-4.4); LYMPH % 12.6 % (27.0-41.0); MEAN CELL VOLUME 95.5 fl (81.0-99.0); MEAN CORPUSCULAR HGB 29.2 pg (27.0-31.0); MEAN CORPUSCULAR HGB CONC 30.6 g/dl (33.0-37.0); MEAN PLATELET VOLUME 10.1 fl (9.6-12.3); MONO # 0.2 10*3/uL (0.1-1.0); MONO % 3.6 % (3.0-9.0); NEUT # 3.5 10*3/uL (2.3-7.9); NEUT % 82.9 % (47.0-73.0); PLATELET COUNT AUTOMATED 266 10*3/uL (130-400); RED BLOOD COUNT 3.56 10*6/uL (4.10-5.10); WHITE BLOOD COUNT 4.2 10*3/uL (4.8-10.8)
[2020-11-14 07:37] LABS: BUN 16 mg/dl (7-24); CHLORIDE 115 mmol/L (98-107); CREATININE 0.71 mg/dL (0.55-1.02); POTASSIUM 4.7 mmol/L (3.5-5.1); SODIUM 142 mmol/L (136-145)
[2020-11-14 08:00] VITALS: BP 104/60
[2020-11-14 12:00] VITALS: BP 90/46
[2020-11-14 16:00] VITALS: BP 78/40
[2020-11-14 20:00] VITALS: BP 96/49
[2020-11-15] VITALS: BP 100/46
[2020-11-15 04:33] LABS: LYMPH # 0.4 10*3/uL (1.3-4.4); LYMPH % 7.3 % (27.0-41.0); MEAN CORPUSCULAR HGB 29.1 pg (27.0-31.0); MEAN CORPUSCULAR HGB CONC 31.5 g/dl (33.0-37.0); MEAN PLATELET VOLUME 9.8 fl (9.6-12.3); MONO # 0.2 10*3/uL (0.1-1.0); MONO % 2.8 % (3.0-9.0); NEUT # 5.1 10*3/uL (2.3-7.9); NEUT % 89.2 % (47.0-73.0); PLATELET COUNT AUTOMATED 307 10*3/uL (130-400); RED BLOOD COUNT 3.68 10*6/uL (4.10-5.10); RED CELL DISTRI WIDTH 13.9 % (0-14.5); WHITE BLOOD COUNT 5.8 10*3/uL (4.8-10.8)
[2020-11-15 04:52] LABS: BUN 18 mg/dl (7-24); CHLORIDE 117 mmol/L (98-107); CREATININE 0.82 mg/dL (0.55-1.02); POTASSIUM 3.9 mmol/L (3.5-5.1); SODIUM 144 mmol/L (136-145)
[2020-11-15 04:56] LABS: MEAN CELL VOLUME 92.4 fl (81.0-99.0)
[2020-11-15 08:00] VITALS: BP 111/59
[2020-11-15 12:00] VITALS: BP 102/54
[2020-11-15 16:00] VITALS: BP 101/50
[2020-11-15 20:00] VITALS: BP 107/57
[2020-11-16] VITALS: BP 90/43
[2020-11-16 08:00] VITALS: BP 111/53
[2020-11-16 12:00] VITALS: BP 108/52
[2020-11-16 16:00] VITALS: BP 101/51
[2020-11-16 20:00] VITALS: BP 102/50
[2020-11-17] VITALS: BP 104/54
[2020-11-17 08:00] VITALS: BP 122/61
[2020-11-17 12:00] VITALS: BP 103/50
[2020-11-17 16:00] VITALS: BP 105/54
[2020-11-17 20:00] VITALS: BP 108/52
[2020-11-18] VITALS: BP 113/62
[2020-11-18 08:00] VITALS: BP 109/59
[2020-11-18] MEDS ORDERED: ZOFRAN4 MG PO (10:30)
[2020-11-18] MEDS ORDERED: HYDROCODONE-AC1 EAC1 PO (10:30)
[2020-11-18] MEDS ORDERED: DECADRON4 MG PO (10:30)
[2020-11-18 12:00] VITALS: BP 120/57
[2020-11-19] MEDS ORDERED: LOPRESSOR25 MG PO (01:28)
[2020-11-19] MEDS ORDERED: VISTARIL50 MG PO (01:30)
[2020-11-19] MEDS ORDERED: TYLENOL325 M2 PO (01:31)
[2020-11-19] MEDS ORDERED: REMERON15 M2 PO (01:31)
[2020-11-19] MEDS ORDERED: ZOFRAN4 MG PO (01:31)
[2020-11-19] MEDS ORDERED: HYDROCODONE-AC1 EAC1 PO (01:32)
== END 2020-11-18 13:55 | DRG 314 ==
LOC: ED 21:16 → 4E 23:43 → EDHOLD 23:43 → 4E 11-12 15:20
PROVIDERS: Hospitalist; Physician Assistant; Social Worker Clinical; ADMIT Family Medicine; ATTEND Family Medicine
DX: I95.9 Hypotension, unspecified (principal); N17.0 Acute kidney failure with tubular necrosis; G93.41 Metabolic encephalopathy; E43 Unspecified severe protein-calorie malnutrition; I50.32 Chronic diastolic (congestive) heart failure; Z20.822 Contact with and (suspected) exposure to COVID-19; R74.01 Elevation of levels of liver transaminase levels; J44.9 Chronic obstructive pulmonary disease, unspecified; I11.0 Hypertensive heart disease with heart failure; E78.2 Mixed hyperlipidemia; J45.40 Moderate persistent asthma, uncomplicated; D64.9 Anemia, unspecified; E87.8 Other disorders of electrolyte and fluid balance, not elsewhere classified; Z88.1 Allergy status to other antibiotic agents; Z91.041 Radiographic dye allergy status; Z91.013 Allergy to seafood; Z88.8 Allergy status to other drugs, medicaments and biological substances; Z90.49 Acquired absence of other specified parts of digestive tract; Z95.0 Presence of cardiac pacemaker; Z87.891 Personal history of nicotine dependence; Z80.0 Family history of malignant neoplasm of digestive organs; Z82.49 Family history of ischemic heart disease and other diseases of the circulatory system; Z79.51 Long term (current) use of inhaled steroids; Z79.899 Other long term (current) drug therapy; Z68.22 Body mass index [BMI] 22.0-22.9, adult; R54 Age-related physical debility

== ENCOUNTER 2020-11-18 17:20 | Inpatient (IN) | payer MEDICARE, OTHER ==
[~2020-11-18] VITALS: Wt 68.4 kg
[~2020-11-18 17:20] MED LIST changes: +DECADRON4 MG PO; +ZOFRAN4 MG PO
[2020-11-18 17:24] VITALS: BP 120/69
[2020-11-18 18:04] LABS: ALBUMIN 1.9 gm/dl (3.1-4.5); ALKALINE PHOSPHATASE 46 U/L (45-117); BUN 15 mg/dl (7-24); CHLORIDE 119 mmol/L (98-107); CREATININE 0.84 mg/dL (0.55-1.02); POTASSIUM 3.8 mmol/L (3.5-5.1); SGOT/AST 96 IU/L (3-35); SGPT/ALT 39 U/L (12-78); SODIUM 141 mmol/L (136-145)
[2020-11-18 18:08] LABS: TROPONIN I 0.059 ng/ml (<0.045)
[2020-11-18 18:10] LABS: BASO % 0.1 % (0.0-1.0); HEMATOCRIT 40.2 % (37.0-47.0); LYMPH # 0.5 10*3/uL (1.3-4.4); LYMPH % 6.4 % (27.0-41.0); MEAN CELL VOLUME 91.8 fl (81.0-99.0); MEAN CORPUSCULAR HGB 29.2 pg (27.0-31.0); MEAN CORPUSCULAR HGB CONC 31.8 g/dl (33.0-37.0); MEAN PLATELET VOLUME 9.7 fl (9.6-12.3); MONO # 0.4 10*3/uL (0.1-1.0); MONO % 4.9 % (3.0-9.0); NEUT % 87.6 % (47.0-73.0); NUCLEATED RED BLOOD CELL 0.2 % (0.0-0.0); PLATELET COUNT AUTOMATED 313 10*3/uL (130-400); RED BLOOD COUNT 4.38 10*6/uL (4.10-5.10); RED CELL DISTRI WIDTH 14.9 % (0-14.5)
[2020-11-18 21:40] VITALS: BP 112/72
[2020-11-18 23:48] VITALS: BP 103/69
[2020-11-19] MEDS ORDERED: LOPRESSOR25 MG PO (01:28)
[2020-11-19] MEDS ORDERED: VISTARIL50 MG PO (01:30)
[2020-11-19] MEDS ORDERED: REMERON15 M2 PO (01:31)
[2020-11-19] MEDS ORDERED: TYLENOL325 M2 PO (01:31)
[2020-11-19] MEDS ORDERED: ZOFRAN4 MG PO (01:31)
[2020-11-19] MEDS ORDERED: HYDROCODONE-AC1 EAC1 PO (01:32)
[2020-11-19 05:57] LABS: ALBUMIN 2.5 gm/dl (3.1-4.5); ALKALINE PHOSPHATASE 53 U/L (45-117); BUN 17 mg/dl (7-24); CHLORIDE 114 mmol/L (98-107); CREATININE 0.93 mg/dL (0.55-1.02); POTASSIUM 3.9 mmol/L (3.5-5.1); SGOT/AST 117 IU/L (3-35); SGPT/ALT 49 U/L (12-78); SODIUM 142 mmol/L (136-145); TOTAL PROTEIN 5.5 gm/dL (6.4-8.2)
[2020-11-19 06:05] LABS: BASO % 0.1 % (0.0-1.0); HEMATOCRIT 43.7 % (37.0-47.0); LYMPH # 1.2 10*3/uL (1.3-4.4); LYMPH % 10.5 % (27.0-41.0); MEAN CORPUSCULAR HGB 29.1 pg (27.0-31.0); MEAN CORPUSCULAR HGB CONC 31.4 g/dl (33.0-37.0); MEAN PLATELET VOLUME 10.3 fl (9.6-12.3); MONO # 0.8 10*3/uL (0.1-1.0); MONO % 7.2 % (3.0-9.0); NEUT # 9.2 10*3/uL (2.3-7.9); NEUT % 81.1 % (47.0-73.0); NUCLEATED RED BLOOD CELL 0.4 % (0.0-0.0); PLATELET COUNT AUTOMATED 378 10*3/uL (130-400); RED CELL DISTRI WIDTH 15.2 % (0-14.5); WHITE BLOOD COUNT 11.3 10*3/uL (4.8-10.8)
[2020-11-19 06:22] LABS: INTERNATIONAL NORM RATIO 1.2 (2.0-3.5)
[2020-11-19 06:29] LABS: ACT PARTIAL THROMBO TIME 77.1 SECONDS (20.0-32.1)
[2020-11-19 08:00] VITALS: BP 110/64
[2020-11-19 12:00] VITALS: BP 113/67
[2020-11-19 16:00] VITALS: BP 103/65
[2020-11-19 20:00] VITALS: BP 100/60
[2020-11-20] VITALS: BP 98/65
[2020-11-20 06:11] LABS: BASO % 0.2 % (0.0-1.0); EOS # 0.2 10*3/uL (0.0-0.4); EOS % 1.3 % (1.0-4.0); HEMATOCRIT 43.1 % (37.0-47.0); LYMPH # 1.9 10*3/uL (1.3-4.4); LYMPH % 16.3 % (27.0-41.0); MEAN CELL VOLUME 93.7 fl (81.0-99.0); MEAN CORPUSCULAR HGB 28.9 pg (27.0-31.0); MEAN CORPUSCULAR HGB CONC 30.9 g/dl (33.0-37.0); MEAN PLATELET VOLUME 10.4 fl (9.6-12.3); MONO # 0.8 10*3/uL (0.1-1.0); MONO % 6.4 % (3.0-9.0); NEUT # 8.8 10*3/uL (2.3-7.9); NEUT % 74.9 % (47.0-73.0); NUCLEATED RED BLOOD CELL 0.1 10*3/uL (0.0-0.0); NUCLEATED RED BLOOD CELL 0.5 % (0.0-0.0); PLATELET COUNT AUTOMATED 305 10*3/uL (130-400); RED CELL DISTRI WIDTH 15.4 % (0-14.5); WHITE BLOOD COUNT 11.7 10*3/uL (4.8-10.8)
[2020-11-20 06:20] LABS: CHLORIDE 116 mmol/L (98-107); POTASSIUM 3.4 mmol/L (3.5-5.1); SODIUM 142 mmol/L (136-145)
[2020-11-20 06:32] LABS: ALBUMIN 2.3 gm/dl (3.1-4.5); ALKALINE PHOSPHATASE 58 U/L (45-117); BUN 25 mg/dl (7-24); CREATININE 0.97 mg/dL (0.55-1.02); SGOT/AST 189 IU/L (3-35); SGPT/ALT 81 U/L (12-78); TOTAL PROTEIN 5.2 gm/dL (6.4-8.2)
[2020-11-20 08:00] VITALS: BP 133/65; BP 81/51
[2020-11-20 12:00] VITALS: BP 64/48
== END 2020-11-20 15:02 | disposition hospice, inpatient (51) | DRG 280 ==
LOC: ED 17:20 → EDHOLD 21:30 → 4E 21:30
PROVIDERS: Emergency Medicine; Hospitalist; Social Worker Clinical; ADMIT Internal Medicine; ATTEND Internal Medicine
DX: I21.4 Non-ST elevation (NSTEMI) myocardial infarction (principal); G93.41 Metabolic encephalopathy; E43 Unspecified severe protein-calorie malnutrition; J96.20 Acute and chronic respiratory failure, unspecified whether with hypoxia or hypercapnia; E87.2 Acidosis; C78.7 Secondary malignant neoplasm of liver and intrahepatic bile duct; I50.32 Chronic diastolic (congestive) heart failure; C34.90 Malignant neoplasm of unspecified part of unspecified bronchus or lung; I13.0 Hypertensive heart and chronic kidney disease with heart failure and stage 1 through stage 4 chronic kidney disease, or unspecified chronic kidney disease; I25.10 Atherosclerotic heart disease of native coronary artery without angina pectoris; N18.9 Chronic kidney disease, unspecified; E11.22 Type 2 diabetes mellitus with diabetic chronic kidney disease; K21.9 Gastro-esophageal reflux disease without esophagitis; E78.5 Hyperlipidemia, unspecified; E11.40 Type 2 diabetes mellitus with diabetic neuropathy, unspecified; E11.65 Type 2 diabetes mellitus with hyperglycemia; J44.9 Chronic obstructive pulmonary disease, unspecified; S31.104A Unspecified open wound of abdominal wall, left lower quadrant without penetration into peritoneal cavity, initial encounter; Z66 Do not resuscitate; Z51.5 Encounter for palliative care; Z20.822 Contact with and (suspected) exposure to COVID-19; E78.2 Mixed hyperlipidemia; J45.40 Moderate persistent asthma, uncomplicated; R91.8 Other nonspecific abnormal finding of lung field; Z88.8 Allergy status to other drugs, medicaments and biological substances; Z88.1 Allergy status to other antibiotic agents; Z91.041 Radiographic dye allergy status; Z91.013 Allergy to seafood; Z90.49 Acquired absence of other specified parts of digestive tract; Z87.891 Personal history of nicotine dependence; Z93.3 Colostomy status; Z80.0 Family history of malignant neoplasm of digestive organs; Z82.49 Family history of ischemic heart disease and other diseases of the circulatory system; X58.XXXA Exposure to other specified factors, initial encounter; Y93.89 Activity, other specified; Y92.89 Other specified places as the place of occurrence of the external cause; Y99.8 Other external cause status; Z68.22 Body mass index [BMI] 22.0-22.9, adult

== ENCOUNTER 2020-11-20 15:05 | Inpatient (IN) | payer OTHER, MEDICARE ==
[~2020-11-20 15:05] MED LIST changes: +REMERON15 M2 PO; +TYLENOL325 M2 PO; +VISTARIL50 MG PO
== END 2020-11-21 01:15 ==
LOC: 4E 15:05
PROVIDERS: ADMIT Student in an Organized Health Care Education/Training Program; ATTEND Student in an Organized Health Care Education/Training Program
DX: I21.4 Non-ST elevation (NSTEMI) myocardial infarction (principal); G93.41 Metabolic encephalopathy; E43 Unspecified severe protein-calorie malnutrition; E87.2 Acidosis; I50.32 Chronic diastolic (congestive) heart failure; C78.7 Secondary malignant neoplasm of liver and intrahepatic bile duct; Z51.5 Encounter for palliative care; R73.9 Hyperglycemia, unspecified; I11.0 Hypertensive heart disease with heart failure; J44.9 Chronic obstructive pulmonary disease, unspecified; J45.40 Moderate persistent asthma, uncomplicated; E78.2 Mixed hyperlipidemia; Z68.22 Body mass index [BMI] 22.0-22.9, adult